=== PATIENT | male | born 1935 | race Caucasian/White ===

== ENCOUNTER 2017-02-19 08:51 | Outpatient (CLI) | payer BC, MEDICARE ==
[2017-02-19 10:05] LABS: ALT (SGPT) 16 U/L (8-55); AST (SGOT) 16 U/L (5-34); Albumin 3.6 g/dL (3.4-4.8); Alkaline Phosphatase 83 U/L (40-150); Anion Gap 13 mmol/L (10-20); BUN (Urea Nitrogen) 20 mg/dL (8.4-25.7); Bilirubin, Direct 0.8 mg/dL (0.1-0.3); Calc. Creatinine Clearance 0 mL/min (70-130); Calcium 8.9 mg/dL (7.8-10.44); Carbon Dioxide 18 mmol/L (23-31); Cardiac Risk 4.1 (Less than 4.5); Chloride 113 mmol/L (98-107); Cholesterol 91 mg/dl (< 200 Desired); Estimated GFR-MDRD 82; Glucose 103 mg/dL (83-110); HDL Cholesterol 22 mg/dL (>60 Neg Risk); LDL Cholesterol, Calculated 60 mg/dL; Potassium 4.3 mmol/L (3.5-5.1); Protein, Total 6.5 g/dL (5.8-8.1); Sodium 140 mmol/L (136-145); Triglycerides 44 mg/dL (Less than 150)
[2017-02-19 10:08] LABS: Hemoglobin A1c 5.9 % (4.0-6.0)
[2017-02-19 19:59] LABS: Acanthocytes SLIGHT = 1-5 cells (100X) (None Seen); Band 3 % (5-11); Eosinophils 2 % (0-10); Hypochromia SLIGHT = 6-15 cells (100X) (0-5/hpf); Large Platelets SLIGHT; Lymphocytes 32 % (21-51); MDiff Complete? YES; Mean Corpuscular HGB CONC 29.8 g/dL (32.0-36.0); Mean Corpuscular Hemoglobin 23.4 pg (27.0-31.0); Mean Corpuscular Volume 78.6 fl (80.0-94.0); Mean Platelet Volume 8.8 fL (7.4-10.4); Microcytosis SLIGHT = 6-15 cells (100X) (0-5/hpf); Monocytes 10 % (0-10); Neutrophil 53 % (42-75); Ovalocytes SLIGHT = 2-5 cells (100X) (0-1/hpf); PLT Morphology Comment Appears Adequate; Platelet Count 316 thou/uL (130-400); Poikilocytosis MODERATE=16-30 cells (100X) (0-5/hpf); Polychromasia SLIGHT = 2-3 cells (100X) (0-2/hpf); RBC Distribution Width 18.8 % (11.5-14.5); White Blood Cell (WBC) Count 7.1 thou/uL (4.8-10.8)
== END 2017-02-19 08:52 | disposition home or self-care (01) ==
LOC: NAV LAB 08:51
PROVIDERS: ATTEND Family Medicine
DX: J42 Unspecified chronic bronchitis (principal); I10 Essential (primary) hypertension; I34.1 Nonrheumatic mitral (valve) prolapse; K57.32 Diverticulitis of large intestine without perforation or abscess without bleeding; F51.01 Primary insomnia; I50.20 Unspecified systolic (congestive) heart failure; Z95.2 Presence of prosthetic heart valve
CPT/HCPCS: 36415; 80048; 80061; 80076; 83036; 83880; 84443; 85025